=== PATIENT | female | born 1940 | race Caucasian/White ===

== ENCOUNTER → 2017-11-25 | Outpatient (CLI) | payer OTHER | END | disposition home or self-care (01) | LOC: RAD 14:52 | PROVIDERS: ATTEND Internal Medicine | DX: J32.4 Chronic pansinusitis (principal); J34.89 Other specified disorders of nose and nasal sinuses | CPT/HCPCS: 70486 ==

== ENCOUNTER → 2018-01-04 | Outpatient (CLI) | payer OTHER | END | disposition home or self-care (01) | LOC: CFH 10:53 | PROVIDERS: ATTEND Internal Medicine | DX: J01.40 Acute pansinusitis, unspecified (principal) | CPT/HCPCS: 70486 ==

== ENCOUNTER 2018-01-21 15:13 | Inpatient (IN) | payer OTHER ==
[~2018-01-21] VITALS: Ht 165.1 cm; Wt 72.5 kg
[2018-01-21] MEDS ORDERED: methylPREDNISolone SOD SUCC 125 MG/2 ML ONE (15:19)
[2018-01-21] MEDS ORDERED: ALBUTEROL SULFATE 2.5MG/0.5ML ONE (15:20)
[2018-01-21] MEDS ORDERED: ALBUTEROL SULFATE 2.5 MG/3 ML ONE (15:20)
[2018-01-21] MEDS ORDERED: PLEASE ENTER HEIGHT AND WEIGHT MC SCH (15:30)
[2018-01-21] MEDS ORDERED: MAGNESIUM SULFATE PMX 2GM/50ML 50 ML IV ONE (15:30)
[2018-01-21] MEDS ORDERED: SODIUM CHLORIDE 0.9% 1,000ML IVBOLUS ONE (15:30)
[2018-01-21] MEDS ORDERED: methylPREDNISolone SOD SUCC 125 MG/2 ML IVP ONE (15:30)
[2018-01-21] MEDS ORDERED: ALBUTEROL SULFATE 2.5 MG/3 ML NPPB ONE (15:30)
[2018-01-21] MEDS ORDERED: PLEASE ENTER ALLERGIES MC SCH (15:30)
[2018-01-21 15:40] LABS: MEAN CORPUSCULAR HEMOGLOBIN 31.1 pg (27.0-34.8); MEAN CORPUSCULAR HGB CONC 33.3 g/dL (32.4-35.8); MEAN CORPUSCULAR VOLUME 93.4 fL (80-100); PLATELET COUNT 314 x10^3/uL (130-400); RED BLOOD COUNT 4.21 x10^6/uL (3.82-5.3); RED CELL DISTRIBUTION WIDTH 14.7 % (9.6-15.2)
[2018-01-21 15:46] LABS: MD YES
[2018-01-21 15:49] LABS: INTERNATIONAL NORMALIZED RATIO 1.01 (0.93-1.1); PROTHROMBIN TIME 10.7 Seconds (9.6-11.5)
[2018-01-21 15:51] LABS: ALANINE AMINOTRANSFERASE 23 U/L (12-78); ANION GAP 9 mmol/L (5-15); CALCIUM 8.8 mg/dL (8.5-10.1); CHLORIDE 107 mmol/L (98-107); CREATININE 1.44 mg/dL (0.55-1.02)
[2018-01-21 15:56] LABS: ALKALINE PHOSPHATASE 140 U/L (45-117); BILIRUBIN,TOTAL 0.5 mg/dL (0.2-1.0); TOTAL PROTEIN 7.6 g/dL (6.4-8.2); TROPONIN I < 0.015 ng/mL (0.000-0.045)
[2018-01-21 16:08] LABS: BASOS#(MANUAL) 0.25 x10^3/uL (0-0.1); BASOS% (MANUAL) 2 % (0-1); EOS#(MANUAL) 2.83 x10^3/uL (0.0-0.4); EOS% (MANUAL) 23 % (1-7); LYMPHS% (MANUAL) 13 % (22-44); MONOS#(MANUAL) 0.49 x10^3/uL (0.3-2.7); MONOS% (MANUAL) 4 % (2-9); SEG#(MANUAL) 7.13 x10^3/uL (1.8-6.8); SEGS% (MANUAL) 58 % (42-75)
[2018-01-21 16:09] LABS: <PLATELET ESTIMATE> ADEQUATE; <PLT MORPHOLOGY> NORMAL PLT MORPH; <RBC MORPHOLOGY> NORMAL
[2018-01-21] MEDS ORDERED: LORazepam 2 MG/ML, 1ML ONE (16:14)
[2018-01-21] MEDS ORDERED: LORazepam 2 MG/ML, 1ML IVPush ONE (16:30)
[2018-01-21] MEDS ORDERED: POLYETHYLENE GLYCOL 17 GM PACKET PO PRN (17:00)
[2018-01-21] MEDS ORDERED: ACETAMINOPHEN 325 MG TABLET PO PRN (17:00)
[2018-01-21] MEDS: INSULIN LISPRO 100 UNITS/ML, PEN SQ-INSULIN SCH ×2 (17:00→20:34)
[2018-01-21] MEDS ORDERED: BISACODYL 10 MG SUPP PR PRN (17:00)
[2018-01-21] MEDS ORDERED: LABETALOL 5MG/ML, 20ML IVPush PRN (17:00)
[2018-01-21] MEDS: methylPREDNISolone SOD SUCC 125 MG/2 ML IVPush SCH ×2 (17:00→22:55)
[2018-01-21] MEDS ORDERED: ENOXAPARIN 40 MG/0.4 ML ONE (17:10)
[2018-01-21] MEDS: ENOXAPARIN 40 MG/0.4 ML SQ SCH (17:19)
[2018-01-21] MEDS: AZITHROMYCIN 500 MG in SODIUM CHLORIDE 0.9% 250 ML IV SCH (17:19)
[2018-01-21 17:35] LABS: TROPONIN I < 0.015 ng/mL (0.000-0.045)
[2018-01-21] MEDS: ALBUTEROL SULFATE 2.5 MG/3 ML NPPB SCH ×3 (18:00→22:37)
[2018-01-21] MEDS ORDERED: D5%-0.45% NACL 1,000 ML IV SCH (18:30)
[2018-01-21 19:17] LABS: TROPONIN I < 0.015 ng/mL (0.000-0.045)
[2018-01-21] MEDS: FAMOTIDINE 20 MG/2 ML IVPush SCH (20:34)
[2018-01-21] MEDS ORDERED: DILT240C9 PO (22:05)
[2018-01-21] MEDS ORDERED: MONT10TA6 PO (22:05)
[2018-01-21] MEDS ORDERED: METF500T17 PO (22:05)
[2018-01-21] MEDS ORDERED: ATOR40TA PO (22:05)
[2018-01-21] MEDS ORDERED: LOSA1TAB22 PO (22:05)
[2018-01-21] MEDS ORDERED: PRED20TA PO (22:32)
[2018-01-21 22:38] VITALS: BP 120/53
[2018-01-21 23:07] LABS: TROPONIN I < 0.015 ng/mL (0.000-0.045)
[2018-01-22] MEDS: ALBUTEROL SULFATE 2.5 MG/3 ML NPPB SCH ×6 (03:00→22:31)
[2018-01-22 04:19] VITALS: BP 140/58
[2018-01-22 04:40] LABS: MEAN CORPUSCULAR HEMOGLOBIN 30.8 pg (27.0-34.8); MEAN CORPUSCULAR HGB CONC 33.1 g/dL (32.4-35.8); MEAN CORPUSCULAR VOLUME 93.1 fL (80-100); PLATELET COUNT 254 x10^3/uL (130-400); RED BLOOD COUNT 3.86 x10^6/uL (3.82-5.3); RED CELL DISTRIBUTION WIDTH 14.1 % (9.6-15.2)
[2018-01-22 04:49] LABS: ALBUMIN 3.6 g/dL (3.4-5.0); ANION GAP 7 mmol/L (5-15); CALCIUM 8.4 mg/dL (8.5-10.1); CHLORIDE 108 mmol/L (98-107)
[2018-01-22 04:51] LABS: CULTURE INDICATED? NO; MICROSCOPIC NOT IND
[2018-01-22 04:52] LABS: ALANINE AMINOTRANSFERASE 23 U/L (12-78); ALKALINE PHOSPHATASE 128 U/L (45-117); BILIRUBIN,TOTAL 0.5 mg/dL (0.2-1.0); CREATININE 1.12 mg/dL (0.55-1.02); TOTAL PROTEIN 6.9 g/dL (6.4-8.2)
[2018-01-22 05:14] LABS: BASOPHILS % (AUTO) 0 % (0-1); EOSINOPHILS % (AUTO) 0 % (1-7); LYMPHOCYTES # (AUTO) 0.47 x10^3/uL (1-3.4); LYMPHOCYTES % (AUTO) 8 % (22-44); MD SCAN; MONOCYTES # (AUTO) 0.02 x10^3/uL (0.2-0.8); MONOCYTES % (AUTO) 0 % (2-9); NEUTROPHILS # (AUTO) 5.45 x10^3/uL (1.8-6.8); NEUTROPHILS % (AUTO) 92 % (42-75)
[2018-01-22] MEDS: methylPREDNISolone SOD SUCC 125 MG/2 ML IVPush SCH ×4 (05:40→23:16)
[2018-01-22] MEDS ORDERED: ALBUTEROL SULFATE 2.5 MG/3 ML NPPB SCH (07:00)
[2018-01-22] MEDS: SENNA/DOCUSATE TABLET PO SCH (08:30)
[2018-01-22] MEDS: FAMOTIDINE 20 MG/2 ML IVPush SCH ×2 (08:30→20:51)
[2018-01-22] MEDS: INSULIN LISPRO 100 UNITS/ML, PEN SQ-INSULIN SCH ×4 (08:32→21:11)
[2018-01-22] MEDS ORDERED: TEMAZEPAM 15 MG CAPSULE PO PRN (14:00)
[2018-01-22] MEDS: ENOXAPARIN 40 MG/0.4 ML SQ SCH (16:29)
[2018-01-22 17:00] VITALS: BP 145/66
[2018-01-22] MEDS: AZITHROMYCIN 500 MG in SODIUM CHLORIDE 0.9% 250 ML IV SCH (17:46)
[2018-01-22 19:24] VITALS: BP 130/61
[2018-01-22] MEDS: BUDESONIDE 0.5 MG/2 ML INHA INH SCH (20:22)
[2018-01-23] MEDS: ALBUTEROL SULFATE 2.5 MG/3 ML NPPB SCH ×6 (03:00→22:58)
[2018-01-23] MEDS: methylPREDNISolone SOD SUCC 125 MG/2 ML IVPush SCH (05:27)
[2018-01-23 07:07] VITALS: BP 130/73
[2018-01-23] MEDS: BUDESONIDE 0.5 MG/2 ML INHA INH SCH ×2 (07:39→20:10)
[2018-01-23] MEDS: INSULIN LISPRO 100 UNITS/ML, PEN SQ-INSULIN SCH ×4 (07:57→21:11)
[2018-01-23] MEDS: SENNA/DOCUSATE TABLET PO SCH (09:35)
[2018-01-23] MEDS: FAMOTIDINE 20 MG/2 ML IVPush SCH (09:35)
[2018-01-23 13:20] VITALS: BP 133/70
[2018-01-23] MEDS: AZITHROMYCIN 500 MG in SODIUM CHLORIDE 0.9% 250 ML IV SCH (17:19)
[2018-01-23] MEDS: ENOXAPARIN 40 MG/0.4 ML SQ SCH (17:19)
[2018-01-23 19:43] VITALS: BP 125/65
[2018-01-23] MEDS: FAMOTIDINE 20 MG TABLET PO SCH (20:39)
[2018-01-23] MEDS: metFORMIN 500 MG TABLET PO SCH (20:39)
[2018-01-23] MEDS ORDERED: ATORVASTATIN 40 MG TABLET PO SCH (21:00)
[2018-01-24] MEDS: ALBUTEROL SULFATE 2.5 MG/3 ML NPPB SCH ×4 (01:39→14:45)
[2018-01-24 02:56] VITALS: BP 111/55
[2018-01-24] MEDS: BUDESONIDE 0.5 MG/2 ML INHA INH SCH (07:00)
[2018-01-24 07:12] VITALS: BP 110/68
[2018-01-24] MEDS: INSULIN LISPRO 100 UNITS/ML, PEN SQ-INSULIN SCH ×2 (07:15→11:23)
[2018-01-24] MEDS: metFORMIN 500 MG TABLET PO SCH (08:07)
[2018-01-24] MEDS: FAMOTIDINE 20 MG TABLET PO SCH (08:07)
[2018-01-24] MEDS: SENNA/DOCUSATE TABLET PO SCH (08:07)
[2018-01-24] MEDS ORDERED: MONTELUKAST 10 MG TABLET PO SCH (09:00)
[2018-01-24] MEDS ORDERED: HYDROCHLOROTHIAZIDE 25 MG TABLET PO SCH (09:00)
[2018-01-24] MEDS ORDERED: LOSARTAN 50MG TABLET PO SCH (09:00)
[2018-01-24] MEDS ORDERED: DILTIAZEM 240 MG CAP.ER.24H PO SCH (09:00)
[2018-01-24 12:26] VITALS: BP 121/60
[2018-01-24] MEDS ORDERED: PRED10TA PO (12:28)
[2018-01-24] MEDS ORDERED: AZIT250T89 PO (12:28)
== END 2018-01-24 16:30 | disposition home or self-care (01) | DRG 189 ==
LOC: ED 16:08 → EDIP 16:09 → ED 17:04 → CCU 17:36 → 3NE 01-22 18:48
PROVIDERS: ADMIT Internal Medicine; ATTEND Internal Medicine
PROC: 5A09357 Assistance with Respiratory Ventilation, Less than 24 Consecutive Hours, Continuous Positive Airway Pressure (ICD-10-PCS; principal; 2018-01-21)
DX: J96.01 Acute respiratory failure with hypoxia (principal); N17.0 Acute kidney failure with tubular necrosis; J44.1 Chronic obstructive pulmonary disease with (acute) exacerbation; E87.2 Acidosis; E11.9 Type 2 diabetes mellitus without complications; E78.5 Hyperlipidemia, unspecified; G47.00 Insomnia, unspecified; I10 Essential (primary) hypertension; J32.4 Chronic pansinusitis; J96.02 Acute respiratory failure with hypercapnia; Z87.891 Personal history of nicotine dependence
CPT/HCPCS: 36415; 36600; 71045; 80053; 81003; 82803; 82962; 83605; 83880; 84443; 84484; 85025; 85610; 87040; 87081; 94640; 94660; 96365; 96366; 96375; G0378; J0456; J1650; J7613; J7626; J1815; J2060; J2930; J3475; J3490; J7030; J7050; J7512